=== PATIENT | female | born 1960 | race Two or more races ===

== ENCOUNTER 2016-12-28 04:37 | Emergency (ER) | payer OTHER ==
[2016-12-28] MEDS ORDERED: ONDANSETRON HCL/PF 2 MG/ML VIAL IV ONE (04:43)
[2016-12-28] MEDS ORDERED: MORPHINE SULFATE 4 MG/ML SYRG IV ONE (04:43)
[2016-12-28] MEDS ORDERED: MORPHINE SULFATE 4 MG/ML SYRG ONE (04:44)
[2016-12-28] MEDS ORDERED: ONDANSETRON HCL/PF 2 MG/ML VIAL ONE (04:44)
--- NOTE | 2016-12-28 04:48 | ERNOTE ---
Abdominal HPI - General Time Seen by Provider: 12/28/16 04:37 Source: patient Exam Limitations: no limitations - Immun/Allergies/Home Medications Allergies/Adverse Reactions: Allergies No Known Drug Allergies Allergy (Verified 12/28/16 05:02) Home Medications: HOME MEDICATIONS Ibuprofen [Motrin] 600 mg PO Q6H PRN #40 tab 12/28/16 [Last Taken Unknown] Ondansetron [Zofran Odt] 4 mg PO Q4H PRN #10 tab 12/28/16 [Last Taken Unknown] Oxycodone HCl/Acetaminophen [Percocet 5-325 mg Tablet] 1 each PO Q4H PRN #30 tablet 12/28/16 [Last Taken Unknown] Tamsulosin HCl [Flomax] 0.4 mg PO DAILY #7 capsule 12/28/16 [Last Taken Unknown] - History of Present Illness Narrative: Patient woke up with sudden left flank pain radiating to her left abdomen. She vomited twice, normal bowel movement. She was asymptomatic when she went to bed at night Date (Duration): 12/28/16 Time (Timing): 03:30 Timing: constant Quality: sharpness Activities at Onset: sleep Review of Systems - Review of Systems Constitutional: Absent: recent illness, fever, chills ENT: Absent: nose congestion, sore throat Respiratory: Absent: shortness of breath Cardiology: Absent: chest pain Gastrointestinal/Abdominal: Present: See HPI, nausea, vomiting, abdominal pain. Absent: diarrhea Genitourinary: Present: no symptoms reported - Patient's Past Medical History Patient History - Medical: No pertinent hx Patient History - Cardiac/Respiratory: No pertinent hx Patient History - Cancer: No Hx of Cancer Patient History - Surgical Procedures: No surgical history Physical Exam - Physical Exam General Appearance: Present: wd/wn, alert, moderate distress, anxious Ears, Nose, Throat: Present: normal ENT inspection Respiratory: Present: no respiratory distress, normal breath sounds, lungs clear Cardiovascular/Chest: Present: regular rate, rhythm, no murmur Gastrointestinal/Abdominal: Present: normal bowel sounds, nontender, nondistended, soft, no organomegaly Back Exam: Present: no CVA tenderness Extremity Exam: Present: no edema Neurological Exam: Present: alert, oriented, normal mood/affect Skin Exam: Present: normal color, warm/dry ED Progress - Results and Orders Patient's Lab Results:: I have reviewed the patient's lab results. - Vital Signs Patient's Vital Signs:: I have reviewed the patient's vital signs. - CT/Ultrasound CT/Ultrasound Narrative: CT abdomen 3mm stone left distal ureter with mild hydronephrosis - Progress/Reassessment Progress Note-Subjective: 12/28/16 04:59 patient more comfortable, sedated but arousable after 4mg morphine 12/28/16 05:45 comfortable, explained labs and plan to get CT to look for kidney stones 12/28/16 06:[address] results and diagnosis patient comfortable Departure - Departure Clinical Impression: Renal colic on left side Disposition: Home self-care Condition: Good Instructions: Renal Colic, [id number], Form - Excuse from Work, School, or Physical Activity Additional Instructions: strain all urine if your symptoms do not resolve over the next couple of days call Dr Barron for follow up if your are unable to keep anything down return to the ER Referrals: Lenny Patel MD [Primary Care Provider] - Anderson Kendrick MD [Associate] - Prescriptions: Ibuprofen [Motrin] 600 mg PO Q6H PRN #40 tab PRN Reason: Pain Ondansetron [Zofran Odt] 4 mg PO Q4H PRN #10 tab PRN Reason: Nausea And Vomiting Oxycodone HCl/Acetaminophen [Percocet 5-325 mg Tablet] 1 each PO Q4H PRN #30 tablet PRN Reason: Pain Tamsulosin HCl [Flomax] 0.4 mg PO DAILY #7 capsule
[2016-12-28 04:58] LABS: Hematocrit 43.6 % (37.0-47.0); Hemoglobin 14.6 gm/dL (12.5-16.0); Mean Cell Volume 83.5 fl (78-100); Mean Corpuscular Hgb Conc 33.5 g/dl (32-36); Mean Platelet Volume 10.2 fl (6.0-9.5); Neutrophil # 6.1 K/mm3 (1.3-6.0); Neutrophil % 57.9 % (42-75.0); Platelet Count 240 K/mm3 (150-450); Red Blood Count 5.22 M/mm3 (4.2-5.4); Red Cell Distribution Width 12.2 % (11.5-14.0); White Blood Count 10.5 K/mm3 (4.0-10.5)
[2016-12-28] MEDS ORDERED: KETOROLAC TROMETHAMINE 30 MG/ML VIAL ONE (05:08)
[2016-12-28] MEDS ORDERED: KETOROLAC TROMETHAMINE 30 MG/ML VIAL IV ONE (05:08)
[2016-12-28 05:12] LABS: Albumin * 3.9 gm/dl (3.4-5.0); Anion Gap 20.4 mmol/L (6.8-13.8); Bilirubin, Total 0.6 mg/dL (0.0-1.1); Calcium * 9.2 mg/dL (7.9-10.9); Potassium 3.4 mmol/L (3.4-4.6); Total Protein 7.8 gm/dL (6.2-8.2)
[2016-12-28] MEDS ORDERED: NORMAL SALINE 1,000 ML IV ONE (05:12)
[2016-12-28 05:22] LABS: Urine Bilirubin Negative (NEGATIVE); Urine Blood 250 /ul (NEGATIVE); Urine Ketone 5 mg/dL (NEGATIVE); Urine Nitrite Negative (NEGATIVE); Urine Protein Negative (NEGATIVE); Urine Urobilinogen Normal (NORMAL)
[2016-12-28 05:35] LABS: Urine Appearance Clear; Urine Bacteria None Seen; Urine Color Yellow; Urine WBC None Seen /hpf (0-5)
[2016-12-28] MEDS ORDERED: TAMSULOSIN HCL 0.4 MG CAP.SR.24H PO ONE ×2 (06:42→06:52)
[2016-12-28 06:59] VITALS: BP 118/75
== END 2016-12-28 07:09 | disposition home or self-care (01) ==
LOC: ER 04:37
DX: N23 Unspecified renal colic (principal)